=== PATIENT | female | born 1950 | race Caucasian/White ===

== ENCOUNTER 2021-11-12 09:54 | Emergency (ER) | payer MEDICARE, BC ==
[2021-11-12] MEDS ORDERED: Boostrix 0.5 ML (Tdap) VIAL ONE (10:50)
== END 2021-11-12 11:05 | disposition home or self-care (01) ==
LOC: CSHERS 09:54
DX: S61.200A Unspecified open wound of right index finger without damage to nail, initial encounter (principal); Z79.899 Other long term (current) drug therapy; W26.0XXA Contact with knife, initial encounter
CPT/HCPCS: 90471; 90715; 99283

== ENCOUNTER 2022-05-06 10:49 | Outpatient (CLI) | payer MEDICARE, BC | END 2022-05-06 10:50 | disposition home or self-care (01) | LOC: CSHMAMMO 10:49 | PROVIDERS: ATTEND Obstetrics & Gynecology | DX: Z12.31 Encounter for screening mammogram for malignant neoplasm of breast (principal); Z85.3 Personal history of malignant neoplasm of breast; Z98.890 Other specified postprocedural states | CPT/HCPCS: 77063; 77067 ==

== ENCOUNTER 2023-05-09 10:09 | Outpatient (CLI) | payer MEDICARE, BC | END 2023-05-09 10:10 | disposition home or self-care (01) | LOC: CSHMAMMO 10:09 | PROVIDERS: ATTEND Obstetrics & Gynecology | DX: Z12.31 Encounter for screening mammogram for malignant neoplasm of breast (principal); Z13.820 Encounter for screening for osteoporosis; M85.80 Other specified disorders of bone density and structure, unspecified site; Z85.3 Personal history of malignant neoplasm of breast; Z98.890 Other specified postprocedural states | CPT/HCPCS: 77063; 77067; 77080 ==

== ENCOUNTER 2024-05-10 11:29 | Outpatient (CLI) | payer MEDICARE, BC | END 2024-05-10 11:30 | disposition home or self-care (01) | LOC: CSHMAMMO 11:29 | PROVIDERS: ATTEND Obstetrics & Gynecology | DX: Z12.31 Encounter for screening mammogram for malignant neoplasm of breast (principal); Z85.3 Personal history of malignant neoplasm of breast; Z98.890 Other specified postprocedural states | CPT/HCPCS: 77063; 77067 ==